=== PATIENT | male | born 1990 | race Two or more races ===

== ENCOUNTER 2024-07-15 21:54 | Emergency (ER) | payer MEDICAID, SELFPAY ==
[2024-07-15 21:56] VITALS: BP 150/89; BP 153/89; PULSE 103; PULSE 93; RESP 18; RESP 20; TEMP 36.6; TEMP 36.9; O2SAT 96; BMI 40.2
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
== END 2024-07-15 22:06 ==
PROVIDERS: Emergency Provider Emergency Medicine
DX: Z02.89 Encounter for other administrative examinations (principal)
CPT/HCPCS: 99281